=== PATIENT | female | born 1935 | race Caucasian/White ===

== ENCOUNTER 2016-12-15 02:23 | Emergency (ER) | payer MEDICARE ==
[2016-12-15] MEDS ORDERED: NS 1,000 ML IV ONE (02:40)
[2016-12-15 02:45] VITALS: BMI 26.8
[2016-12-15] MEDS ORDERED: ACETAMINOPHEN 325 MG/TAB TABLET PO ONE (02:51)
[2016-12-15 03:03] LABS: AUTOMATED BASOPHIL 0.3 % (0-2); AUTOMATED EOSINOPHIL 0.7 % (0-5); AUTOMATED LYMPH 12.5 % (17-44); AUTOMATED MONOCYTE 6.6 % (3-10); AUTOMATED NEUTROPHIL 79.9 % (45-76); MPV 9.8 fL (7.4-10.4)
[2016-12-15 03:12] LABS: BLOOD UREA NITROGEN 21 MG/DL (7-17); CALCIUM 8.8 MG/DL (8.4-10.2); CALCULATED OSMOLALITY 268 MOs/Kg (270-290); CHLORIDE 98 mEq/L (98-107); CPK TOTAL WITH POSSIBLE MB 72 IU/L (30-134); GLUCOSE 122 MG/DL (70-99); SODIUM LEVEL 137 mEq/L (137-146); TOTAL PROTEIN 7.9 G/DL (6.3-8.2)
[2016-12-15 03:13] LABS: PARTIAL THROMB. TIME 24.8 SEC (22-35); PT-INR 1.1
--- NOTE | 2016-12-15 03:25 | DIRPT ---
CLINICAL DATA: Shortness of breath. Chest pain. Generalized pain. Fever, chills, nausea, and vomiting. EXAM: CHEST 2 VIEW COMPARISON: 11/14/2016 FINDINGS: Normal heart size and pulmonary vascularity. Calcified aorta. Suggestion of focal infiltration in the left lung base laterally possibly representing pneumonia. No blunting of costophrenic angles. No pneumothorax. Mediastinal contours appear intact. Degenerative changes in the spine with mild anterior wedging of mid thoracic vertebrae similar prior study. IMPRESSION: Suggestion of developing infiltration in the left lung base possibly due to pneumonia peer Electronically Signed By: Winston Doan M.D. On: 12/15/2016 03:22
[2016-12-15 03:41] LABS: LEUKOCYTES/URINE NEG (NEGATIVE); NITRITE/URINE NEG (NEGATIVE); URINE OCCULT BLOOD 3+ (NEG/TRACE)
--- NOTE | 2016-12-15 03:55 | EDPRACDOC ---
- General Information Chief Complaint: Generalized Weakness Stated Complaint: FEVER/SHOB/CHEST/BACK PAIN Time Seen by Provider: 12/15/16 02:34 Information Source: Patient Mode Of Arrival: Car Home Medications: Home Medications Amitriptyline HCl [Elavil] 50 mg PO HS 01/17/13 Citalopram Hydrobromide [Citalopram HBr] 60 mg PO DAILY 01/17/13 Fluticasone Propionate [Flonase Nasal [place]] 1 spray LEONARDO DAILY #1 each 10/31/16 Aspirin (Enteric Coated) [Ecotrin] 81 mg PO DAILY 11/14/16 Atorvastatin Calcium [Lipitor] 20 mg PO QHS 11/14/16 Benzonatate [Tessalon Perle] 200 mg PO TID PRN #14 capsule 11/14/16 Hydrocodone/Chlorphen Polis [Tussionex] 5 ml PO BID PRN #60 udc 11/14/16 Levothyroxine Sodium 137 mcg PO QHS 11/14/16 Albuterol Sulfate MDI [Proventil HFA] 1 puff PO Q4-6H 12/15/16 Azithromycin 250 mg PO DAILY #4 tablet 12/15/16 Ca Carb & Gluc/Mag Ox & Gluc [Calcium Magnesium Caplet] 1 each PO DAILY Cefdinir 300 mg PO BID #14 capsule 12/15/16 Lorazepam 0.5 - 1 mg PO Q6-8H PRN 12/15/16 Omeprazole 40 mg PO DAILY 12/15/16 Travoprost [Travatan Z] 1 drop OP DAILY 12/15/16 Allergies/Adverse Reactions: Allergies Allergy/AdvReac Type Severity Reaction Status Date / Time Penicillins Allergy Unknown Unknown/See Verified 10/31/16 11:32 Comments alendronate sodium Allergy Unknown/See Verified 10/31/16 11:32 Comments prednisone Allergy Unknown/See Verified 10/31/16 11:32 Comments - History of Present Illness HPI: COUGH FEVER CHILLS STARTING 1-2 DAYS AGO. COUGH HAS BEEN NONPRODUCTIVE. NO NAUSEA VOMITING DIARRHEA APPETITE REMAINED NORMAL. AMBULATING WELL AT HOME. LIVES WITH HER GRANDDAUGHTER. PLACED ON ANTIBIOTICS APPROXIMATELY 1 MONTH AGO FOR BRONCHOPNEUMONIA. SHE DID GET BETTER FROM THIS. ED Past Medical History - History Reviewed Yes Nurses notes reviewed and agree except as marked - Patient Medical History Cardiac History: Reports: Hypertension Respiratory History: Reports: COPD GI/ History: Reports: Urinary Tract Infection, Gastroesophageal Reflux, Diverticulosis Musculoskeletal History: Reports: Osteoarthritis Psychological History: Reports: Depression, Anxiety Systemic History: Denies: Cancer Surgical History: Reports: Cholecystectomy - Family Medical History Reports: Cancer (LUNG CA FATHER, SISTER) - Social Medical History Smoking Status: Never smoker EDM Review of Systems - Review of Systems ROS Negative Except as Marked: Yes All systems reviewed and were negative except as marked - Physical Exam Constitutional: No apparent distress, Alert (Awake), Other (ELDERLY FEMALE VERY COMFORTABLE.) Oriented to: Time, Person, Place Last recorded Vital Signs: Last Vital Signs Temp 102.6 F H 12/15/16 02:41 Pulse 100 12/15/16 02:41 Resp 20 12/15/16 02:41 BP 188/74 H 12/15/16 02:41 Pulse Ox 97 12/15/16 02:41 Oxygen Pulse Oxygen Saturation 97 O2 Device Room Air Oxygen Flow Rate Fraction of Inspired Oxygen ( FIO2) - HEENT Head: Normal ( normocephalic) Eye Exam: Normal (PERRL, EOMI, Sclera white) Oropharynx: Normal (Pharynx:Moist without exudate,Gums-no swelling) Tympanic Membrane: Normal Neck: Normal (FROM, trachea at midline) - Respiratory/Cardiovascular Respiratory: Normal - CTA (BBS clear to auscultation without adventitious sounds ) Cardiovascular: Normal (RRR without murmur, gallop or rub) - GI Auscultation: Normal (NABS) Palpation: Normal (Soft,No rebound or guarding, non distended) Tenderness: Non tender Stout's Sign: Negative - Musculoskeletal Back: Normal (Non-Tender) Extremities: Normal (Normal tone, Pulses 2+ No cyanosis or edema, FROM) - Integumentary Skin: Normal, Warm, Dry Lymphatics: Normal (no adenopathy) - Neurologic Memory Impaired: Normal Motor Function: Normal (Normal tone, Pulses 2+ No cyanosis or edema, FROM) Cranial Nerve: Normal (CN II-X11 intact sensation, strength 5/5) Cerebellar: Normal Mood Description: Normal Thought: Coherent Perception: Normal ED SOB MDM - Results Result Diagrams: 12/15/16 02:45 12/15/16 02:45 Results: WBC 17.1 xk/uL (3.8-10.8) H 12/15/16 02:45 RBC 4.16 xM/uL (4.20-5.40) L 12/15/16 02:45 Hgb 11.1 g/dL (12.0-16.0) L 12/15/16 02:45 Hct 34.4 % (36-47) L 12/15/16 02:45 MCV 83 fL (81-99) 12/15/16 02:45 MCH 26.6 pg (27-32) L 12/15/16 02:45 MCHC 32.2 g/dl (33-36) L 12/15/16 02:45 RDW 13.3 % (11.5-14.5) 12/15/16 02:45 Plt Count 229 xk/uL (130-400) 12/15/16 02:45 MPV 9.8 fL (7.4-10.4) 12/15/16 02:45 Neut % (Auto) 79.9 % (45-76) H 12/15/16 02:45 Lymph % (Auto) 12.5 % (17-44) L 12/15/16 02:45 [place] % (Auto) 6.6 % (3-10) 12/15/16 02:45 Eos % (Auto) 0.7 % (0-5) 12/15/16 02:45 Baso % (Auto) 0.3 % (0-2) 12/15/16 02:45 Absolute Neuts (auto) 13.51 xk/uL (1.7-8.2) H 12/15/16 02:45 Absolute Lymphs (auto) 2.05 xk/uL (0.65-4.75) 12/15/16 02:45 PT 11.3 SEC (9.2-11.2) H 12/15/16 02:45 INR 1.1 12/15/16 02:45 APTT 24.8 SEC (22-35) 12/15/16 02:45 Sodium 137 mEq/L (137-146) 12/15/16 02:45 Potassium 4.0 mEq/L (3.5-5.1) 12/15/16 02:45 Chloride 98 mEq/L (98-107) 12/15/16 02:45 Carbon Dioxide 26 mMOL/L (22-33) 12/15/16 02:45 Anion Gap 17 mEq/L (8-16) H 12/15/16 02:45 BUN 21 MG/DL (7-17) H 12/15/16 02:45 Creatinine 1.40 MG/DL (0.52-1.04) H 12/15/16 02:45 Estimated GFR (MDRD) 36 mL/min (>=60) L 12/15/16 02:45 Glucose 122 MG/DL (70-99) H 12/15/16 02:45 Calculated Osmolality 268 MOs/Kg (270-290) L 12/15/16 02:45 Lactic Acid 1.5 mEq/L (0.7-2.1) 12/15/16 02:45 Calcium 8.8 MG/DL (8.4-10.2) 12/15/16 02:45 Total Bilirubin 0.8 MG/DL (0.2-1.3) 12/15/16 02:45 AST 29 IU/L (14-36) 12/15/16 02:45 ALT 23 IU/L (9-52) 12/15/16 02:45 Alkaline Phosphatase 81 IU/L (55-165) 12/15/16 02:45 Creatine Kinase 72 IU/L (30-134) 12/15/16 02:45 Troponin I < 0.01 ng/mL (<.04) 12/15/16 02:45 Total Protein 7.9 G/DL (6.3-8.2) 12/15/16 02:45 Albumin 4.2 G/DL (3.5-5.0) 12/15/16 02:45 Urine Color Yellow 12/15/16 03:30 Urine Clarity Clear 12/15/16 03:30 Urine pH 7.0 (5.0-8.0) 12/15/16 03:30 Ur Specific [place] 1.005 (1.003-1.035) 12/15/16 03:30 Urine Protein 1+ (NEG/TRACE) H 12/15/16 03:30 Urine Glucose (UA) Neg (NEGATIVE) 12/15/16 03:30 Urine Ketones Neg (NEGATIVE) 12/15/16 03:30 Urine Occult Blood 3+ (NEG/TRACE) H 12/15/16 03:30 Urine Nitrite Neg (NEGATIVE) 12/15/16 03:30 Urine Bilirubin Neg (NEGATIVE) 12/15/16 03:30 Urine Urobilinogen <2.0 MG/DL (0-1) 12/15/16 03:30 Ur Leukocyte Esterase Neg (NEGATIVE) 12/15/16 03:30 Urine RBC 10-20 (0-5) H 12/15/16 03:30 Ur Epithelial Cells Occ 12/15/16 03:30 Microbiology 12/15/16 02:49 Influenza Type A Antigen Screen - Final Nasal Washing/Aspirate Or Swab NEGATIVE Please note: A NEGATIVE result does not exclude an influenza virus infection. It is a presumptive result and, if required, confirmation should be done using either a virus culture or an FDA-cleared influenza A&B molecular assay. ("NORMAL" value = "NEGATIVE".) Influenza Type B Antigen Screen - Final NEGATIVE Please note: A NEGATIVE result does not exclude an influenza virus infection. It is a presumptive result and, if required, confirmation should be done using either a virus culture or an FDA-cleared influenza A&B molecular assay. ("NORMAL" value = "NEGATIVE".) Lab Results 12/15/16 12/15/16 12/15/16 03:30 02:45 02:45 WBC 17.1 H RBC 4.16 L Hgb 11.1 L Hct 34.4 L MCV 83 MCH 26.6 L MCHC 32.2 L RDW 13.3 Plt Count 229 MPV 9.8 Neut % (Auto) 79.9 H Lymph % (Auto) 12.5 L [place] % (Auto) 6.6 Eos % (Auto) 0.7 Baso % (Auto) 0.3 Absolute Neuts (auto) 13.51 H Absolute Lymphs (auto) 2.05 PT 11.3 H INR 1.1 APTT 24.8 Sodium Potassium Chloride Carbon Dioxide Anion Gap BUN Creatinine Estimated GFR (MDRD) Glucose Calculated Osmolality Lactic Acid Calcium Total Bilirubin AST ALT Alkaline Phosphatase Creatine Kinase Troponin I Total Protein Albumin Urine Color Yellow Urine Clarity Clear Urine pH 7.0 Ur Specific [place] 1.005 Urine Protein 1+ H Urine Glucose (UA) Neg Urine Ketones Neg Urine Occult Blood 3+ H Urine Nitrite Neg Urine Bilirubin Neg Urine Urobilinogen <2.0 Ur Leukocyte Esterase Neg Urine RBC 10-20 H Ur Epithelial Cells Occ 12/15/16 12/15/16 02:45 02:45 WBC RBC Hgb Hct MCV MCH MCHC RDW Plt Count MPV Neut % (Auto) Lymph % (Auto) [place] % (Auto) Eos % (Auto) Baso % (Auto) Absolute Neuts (auto) Absolute Lymphs (auto) PT INR APTT Sodium 137 Potassium 4.0 Chloride 98 Carbon Dioxide 26 Anion Gap 17 H BUN 21 H Creatinine 1.40 H Estimated GFR (MDRD) 36 L Glucose 122 H Calculated Osmolality 268 L Lactic Acid 1.5 Calcium 8.8 Total Bilirubin 0.8 AST 29 ALT 23 Alkaline Phosphatase 81 Creatine Kinase 72 Troponin I < 0.01 Total Protein 7.9 Albumin 4.2 Urine Color Urine Clarity Urine pH Ur Specific [place] Urine Protein Urine Glucose (UA) Urine Ketones Urine Occult Blood Urine Nitrite Urine Bilirubin Urine Urobilinogen Ur Leukocyte Esterase Urine RBC Ur Epithelial Cells - EKG EKG #1 EKG Time: 02:33 -: Yes EKG interpreted by me Rate: bpm: 102 [place]: Normal Rhythm: ST Block: None Hypertrophy: None ST: Normal - Diagnostic Imaging Chest Image interpreted by: Radiologist Diagnostic Imaging Comments: Patient Name: NAZARIO GUTIERREZ LOC: ED : 1935 AGE: 81 Order Date:12/15/16 Date of Service: Report # [id number] Ord Physician: Sofie Zepeda MD Exam # [id number] Emergency Physician: Sofie Zepeda MD Exam(s): [id number] RAD/DG CHEST 2V CLINICAL DATA: Shortness of breath. Chest pain. Generalized pain. Fever, chills, nausea, and vomiting. EXAM: CHEST 2 VIEW COMPARISON: 11/14/2016 FINDINGS: Normal heart size and pulmonary vascularity. Calcified aorta. Suggestion of focal infiltration in the left lung base laterally possibly representing pneumonia. No blunting of costophrenic angles. No pneumothorax. Mediastinal contours appear intact. Degenerative changes in the spine with mild anterior wedging of mid thoracic vertebrae similar prior study. IMPRESSION: Suggestion of developing infiltration in the left lung base possibly due to pneumonia peer Electronically Signed By: Winston Doan M.D. On: 12/15/2016 03:22 Electronically Signed By: Atiya Doan MD Electronically Signed Date/Time: [id number] Dictate Date/Time: 12/15/16320 Technologist: Janki Hylton Transcribed By: Wilson Transcribed Date/Time: 12/15/16321 - Additional Information Additional Information: VITAL SIGNS HAVE BEEN WITHIN NORMAL LIMITS, 90 ACID IS NORMAL PATIENT WELL- APPEARING NO NAUSEA VOMITING OR DIARRHEA ABLE TO TAKE P.O. WILL TRY A ROUND OF P.O. ANTIBIOTICS., BUT AT THIS TIME OUTPATIENT MANAGEMENT APPEARS REASONABLE. - Departure Disposition: Home Condition: Good Final Diagnosis: Community acquired bacterial pneumonia Instructions: Weakness (General), Bacterial Pneumonia (ED) Education/Counseling Given To: Patient Education/Counseling Given Regarding: Diagnosis, Treatment, Prognosis Referrals: Aris Manuel MD [Primary Care Provider] - One Week Prescriptions: New Azithromycin 250 mg PO DAILY #4 tablet Cefdinir 300 mg PO BID #14 capsule No Action Citalopram Hydrobromide [Citalopram HBr] 60 mg PO DAILY Amitriptyline HCl [Elavil] 50 mg PO HS Fluticasone Propionate [Flonase Nasal [place]] 1 spray LEONARDO DAILY #1 each Levothyroxine Sodium 137 mcg PO QHS Atorvastatin Calcium [Lipitor] 20 mg PO QHS Aspirin (Enteric Coated) [Ecotrin] 81 mg PO DAILY Benzonatate [Tessalon Perle] 200 mg PO TID PRN #14 capsule PRN Reason: Cough Hydrocodone/Chlorphen Polis [Tussionex] 5 ml PO BID PRN #60 udc PRN Reason: Cough Omeprazole 40 mg PO DAILY Lorazepam 0.5 - 1 mg PO Q6-8H PRN PRN Reason: Anxiety Ca Carb & Gluc/Mag Ox & Gluc [Calcium Magnesium Caplet] 1 each PO DAILY Albuterol Sulfate MDI [Proventil HFA] 1 puff PO Q4-6H Travoprost [Travatan Z] 1 drop OP DAILY
[2016-12-15] MEDS ORDERED: CEFTRIAXONE 1 GM in D5W 100 ML IV ONE (04:51)
[2016-12-15] MEDS ORDERED: LEVOFLOXACIN 750 MG TAB PO ONE (04:51)
[2016-12-15] MEDS ORDERED: AZITHROMYCIN 250 MG TAB PO ONE (04:52)
[2016-12-15] MEDS ORDERED: AZITHROMYCIN 250 MG TAB ONE (05:18)
[2016-12-15 06:48] VITALS: BP 134/78; PULSE 94; TEMP 99.6
== END 2016-12-15 06:30 | disposition home or self-care (01) ==
LOC: ED 02:23
DX: J15.9 Unspecified bacterial pneumonia (principal); I10 Essential (primary) hypertension; J44.9 Chronic obstructive pulmonary disease, unspecified; K21.9 Gastro-esophageal reflux disease without esophagitis; Z79.899 Other long term (current) drug therapy
CPT/HCPCS: 36415; 71020; 80053; 81001; 82550; 83605; 84484; 85025; 85610; 85730; 87040; 87086; 87804; 93005; 96361; 96365; 99284; A9270; J0696; J7060; J3490

== ENCOUNTER 2016-12-21 19:10 | Emergency (ER) | payer MEDICARE ==
[2016-12-21 19:13] VITALS: TEMP 99.3
[2016-12-21 19:32] VITALS: BMI 27.3
[2016-12-21 19:41] LABS: AUTOMATED BASOPHIL 0.8 % (0-2); AUTOMATED EOSINOPHIL 5.5 % (0-5); AUTOMATED MONOCYTE 8.3 % (3-10); AUTOMATED NEUTROPHIL 53.4 % (45-76); MPV 9.3 fL (7.4-10.4)
[2016-12-21 19:55] LABS: BLOOD UREA NITROGEN 15 MG/DL (7-17); CALCIUM 8.6 MG/DL (8.4-10.2); CALCULATED OSMOLALITY 268 MOs/Kg (270-290); CHLORIDE 102 mEq/L (98-107); GLUCOSE 116 mg/dL (70-99); SODIUM LEVEL 138 mEq/L (137-146); TOTAL PROTEIN 7.3 G/DL (6.3-8.2)
--- NOTE | 2016-12-21 20:15 | EDPRACDOC ---
- General Information Chief Complaint: Dyspnea/Resp distress Stated Complaint: SENT FROM DR RODRÍGUEZ - BLOOD CLOT? Time Seen by Provider: 12/21/16 19:46 Mode Of Arrival: Car Home Medications: Home Medications Amitriptyline HCl [Elavil] 50 mg PO HS 01/17/13 Citalopram Hydrobromide [Citalopram HBr] 60 mg PO DAILY 01/17/13 Aspirin (Enteric Coated) [Ecotrin] 81 mg PO DAILY 11/14/16 Atorvastatin Calcium [Lipitor] 20 mg PO QHS 11/14/16 Levothyroxine Sodium 137 mcg PO DAILY 11/14/16 Albuterol Sulfate MDI [Proventil HFA] 1 puff PO Q4-6H PRN 12/15/16 Ca Carb & Gluc/Mag Ox & Gluc [Calcium Magnesium Caplet] 1 tab PO DAILY 12/15/16 Cefdinir 300 mg PO BID #14 capsule 12/15/16 Lorazepam 0.5 - 1 mg PO Q6-8H PRN 12/15/16 Omeprazole 40 mg PO DAILY 12/15/16 Travoprost [Travatan Z] 1 drop OU QHS 12/15/16 Fluticasone Propionate [Flonase Nasal [place]] 1 spray LEONARDO DAILY PRN 12/21/16 Levofloxacin [Levaquin] 750 mg PO DAILY #20 tablet 12/21/16 Metoprolol Tartrate [Lopressor] 12.5 mg PO BID 12/21/16 Allergies/Adverse Reactions: Allergies Allergy/AdvReac Type Severity Reaction Status Date / Time Penicillins Allergy Unknown Unknown/See Verified 12/21/16 19:32 Comments alendronate sodium Allergy Unknown/See Verified 12/21/16 19:32 Comments prednisone Allergy Unknown/See Verified 12/21/16 19:32 Comments - History of Present Illness HPI: C/o inc exertional SOB, weakness, dizztness, orthopnea, nausea, since OCT 2016. Sent to cardiology by pcp Dr Manuel. Saw toy department manager Aga today and sent to ED for elevated d-dimer. Denies cp,fever, vomiting, cough, sore throat, change in urine or BM. Med hx COPD, otherwise pt unsure. Seen here in ED multiple times for same sx. Early pneumonia on 11/2716 CXR. Shortness of Breath: Mild Relevant History: Reports: COPD Cough: Reports: Non-productive Rhinorrhea: Reports: None Ear Symptoms: Reports: None SOB Worsens with: Reports: Exertion, Anxiety SOB Improves with: Reports: Sitting up ED Past Medical History - History Reviewed Yes Nurses notes reviewed and agree except as marked - Patient Medical History Cardiac History: Reports: Hypertension Respiratory History: Reports: COPD GI/ History: Reports: Urinary Tract Infection, Gastroesophageal Reflux, Diverticulosis Musculoskeletal History: Reports: Osteoarthritis Psychological History: Reports: Depression, Anxiety Systemic History: Denies: Cancer Surgical History: Reports: Cholecystectomy - Family Medical History Reports: Cancer (LUNG CA FATHER, SISTER) - Social Medical History Smoking Status: Never smoker EDM Review of Systems - Review of Systems ROS Negative Except as Marked: Yes All systems reviewed and were negative except as marked Respiratory: Cough, Shortness of Breath Neurological: Weakness - Physical Exam Constitutional: No apparent distress, Alert Oriented to: Time, Person, Place Last recorded Vital Signs: Last Vital Signs Temp 99.3 F 12/21/16 19:12 Pulse 73 12/21/16 19:12 Resp 18 12/21/16 19:12 BP 147/69 12/21/16 19:12 Pulse Ox 94 12/21/16 19:12 Oxygen Pulse Oxygen Saturation 94 O2 Device Room Air Oxygen Flow Rate Fraction of Inspired Oxygen ( FIO2) - HEENT Head: Normal Eye Exam: negative: Conjunctival Injection, Scleral Icterus Oropharynx: negative: Drooling TMJ: Normal Nose: No Symptoms Reported Neck: Normal - Respiratory/Cardiovascular Respiratory: Normal - CTA Cardiovascular: Normal - GI Tenderness: Non tender - Musculoskeletal Back: Normal Extremities: Normal - Integumentary Skin: Normal - Neurologic Mood Description: Normal Thought: Coherent Perception: Normal ED SOB MDM - Results Result Diagrams: 12/21/16 19:30 12/21/16 19:30 Results: WBC 11.0 xk/uL (3.8-10.8) H 12/21/16 19:30 RBC 3.76 xM/uL (4.20-5.40) L 12/21/16 19:30 Hgb 10.1 g/dL (12.0-16.0) L 12/21/16 19:30 Hct 30.6 % (36-47) L 12/21/16 19:30 MCV 81 fL (81-99) 12/21/16 19:30 MCH 27.0 pg (27-32) 12/21/16 19:30 MCHC 33.1 g/dl (33-36) 12/21/16 19:30 RDW 13.2 % (11.5-14.5) 12/21/16 19:30 Plt Count 304 xk/uL (130-400) 12/21/16 19:30 MPV 9.3 fL (7.4-10.4) 12/21/16 19:30 Neut % (Auto) 53.4 % (45-76) 12/21/16 19:30 Lymph % (Auto) 32.0 % (17-44) 12/21/16 19:30 [place] % (Auto) 8.3 % (3-10) 12/21/16 19:30 Eos % (Auto) 5.5 % (0-5) H 12/21/16 19:30 Baso % (Auto) 0.8 % (0-2) 12/21/16 19:30 Absolute Neuts (auto) 5.83 xk/uL (1.7-8.2) 12/21/16 19:30 Absolute Lymphs (auto) 3.52 xk/uL (0.65-4.75) 12/21/16 19:30 APTT 27.2 SEC (22-35) 12/21/16 19:30 Sodium 138 mEq/L (137-146) 12/21/16 19:30 Potassium 4.0 mEq/L (3.5-5.1) 12/21/16 19:30 Chloride 102 mEq/L (98-107) 12/21/16 19:30 Carbon Dioxide 23 mMOL/L (22-33) 12/21/16 19:30 Anion Gap 17 mEq/L (8-16) H 12/21/16 19:30 BUN 15 MG/DL (7-17) 12/21/16 19:30 Creatinine 1.20 MG/DL (0.52-1.04) H 12/21/16 19:30 Estimated GFR (MDRD) 43 mL/min (>=60) L 12/21/16 19:30 Glucose 116 mg/dL (70-99) H 12/21/16 19:30 Calculated Osmolality 268 MOs/Kg (270-290) L 12/21/16 19:30 Calcium 8.6 MG/DL (8.4-10.2) 12/21/16 19:30 Corrected Calcium 9.0 MG/DL (8.4-10.2) 12/21/16 19:30 Total Bilirubin 0.4 MG/DL (0.2-1.3) 12/21/16 19:30 AST 29 IU/L (14-36) 12/21/16 19:30 ALT 33 IU/L (9-52) 12/21/16 19:30 Alkaline Phosphatase 61 IU/L (55-165) 12/21/16 19:30 Total Protein 7.3 G/DL (6.3-8.2) 12/21/16 19:30 Albumin 3.6 G/DL (3.5-5.0) 12/21/16 19:30 Lab Results 12/21/16 12/21/16 12/21/16 19:30 19:30 19:30 WBC 11.0 H RBC 3.76 L Hgb 10.1 L Hct 30.6 L MCV 81 MCH 27.0 MCHC 33.1 RDW 13.2 Plt Count 304 MPV 9.3 Neut % (Auto) 53.4 Lymph % (Auto) 32.0 [place] % (Auto) 8.3 Eos % (Auto) 5.5 H Baso % (Auto) 0.8 Absolute Neuts (auto) 5.83 Absolute Lymphs (auto) 3.52 APTT 27.2 Sodium 138 Potassium 4.0 Chloride 102 Carbon Dioxide 23 Anion Gap 17 H BUN 15 Creatinine 1.20 H Estimated GFR (MDRD) 43 L Glucose 116 H Calculated Osmolality 268 L Calcium 8.6 Corrected Calcium 9.0 Total Bilirubin 0.4 AST 29 ALT 33 Alkaline Phosphatase 61 Total Protein 7.3 Albumin 3.6 - EKG EKG #1 EKG Time: 21:43 -: Yes EKG interpreted by me Rate: bpm: 72 Rhythm: NSR ST: Normal Comparison: 11/30/16 (ST) - Diagnostic Imaging Chest Image interpreted by: Radiologist Diagnostic Imaging Comments: EXAM: CT ANGIOGRAPHY CHEST WITH CONTRAST TECHNIQUE: Multidetector CT imaging of the chest was performed using the standard protocol during bolus administration of intravenous contrast. Multiplanar CT image reconstructions and MIPs were obtained to evaluate the vascular anatomy. CONTRAST: 90 cc of Isovue 370 COMPARISON: 10/31/2016 FINDINGS: Mediastinum: Normal heart size. There is aortic atherosclerosis noted. Calcification within the LAD, left circumflex and RCA coronary artery noted. The esophagus appears patent. Normal appearance of the trachea. The main pulmonary artery appears normal. No saddle embolus. No lobar or segmental pulmonary embolus identified. Lungs/Pleura: No pleural effusion identified. There is dense airspace consolidation within the posterior and medial left lower lobe compatible with pneumonia. Several additional patchy areas of consolidation are noted in the right middle lobe and right apex. Upper Abdomen: Cyst arises from the upper pole of the left kidney. The visualized portions of the liver, spleen and adrenal glands are normal. Musculoskeletal: Spondylosis noted within the thoracic spine. Within the upper thoracic spine there is a kyphosis deformity, image 66 of series 601. No aggressive lytic or sclerotic bone lesions identified. Review of the MIP images confirms the above findings. IMPRESSION: 1. No acute pulmonary embolus. 2. Left lower lobe airspace consolidation likely secondary to pneumonia. Followup PA and lateral chest X-ray is recommended in 3-4 weeks following trial of antibiotic therapy to ensure resolution and exclude underlying malignancy. 3. Aortic atherosclerosis and multi vessel coronary artery calcification. Electronically Signed By: Karlie Victor M.D. On: 12/21/2016 21:17 - Additional Information Additional Information: pt given zpak and cefdinir last week. will try levaquin. O2 sats now 99% Decision Time to Discharge: 21:46 - Departure Disposition: Home Condition: Stable Final Diagnosis: Pneumonia Qualifiers: Pneumonia type: due to unspecified organism Laterality: unspecified laterality Lung location: unspecified part of lung Qualified Code(s): J18.9 - Pneumonia, unspecified organism Instructions: Bacterial Pneumonia (ED) Education/Counseling Given To: Patient Education/Counseling Given Regarding: Diagnosis, Treatment, Prognosis, Follow Up Referrals: Aris Manuel MD [Primary Care Provider] - One Week Prescriptions: New Levofloxacin [Levaquin] 750 mg PO DAILY #20 tablet No Action Citalopram Hydrobromide [Citalopram HBr] 60 mg PO DAILY Amitriptyline HCl [Elavil] 50 mg PO HS Levothyroxine Sodium 137 mcg PO DAILY Atorvastatin Calcium [Lipitor] 20 mg PO QHS Aspirin (Enteric Coated) [Ecotrin] 81 mg PO DAILY Omeprazole 40 mg PO DAILY Lorazepam 0.5 - 1 mg PO Q6-8H PRN PRN Reason: Anxiety Ca Carb & Gluc/Mag Ox & Gluc [Calcium Magnesium Caplet] 1 tab PO DAILY Albuterol Sulfate MDI [Proventil HFA] 1 puff PO Q4-6H PRN PRN Reason: Shortness Of Breath Travoprost [Travatan Z] 1 drop OU QHS Cefdinir 300 mg PO BID #14 capsule Metoprolol Tartrate [Lopressor] 12.5 mg PO BID Fluticasone Propionate [Flonase Nasal [place]] 1 spray LEONARDO DAILY PRN PRN Reason: ALLERGIES Additional Instructions: Follow up [facility] primary care. Take levaquin daily for 10 days. Return to ED for any new or worsening symptoms.
[2016-12-21] MEDS ORDERED: Pharmacy Review for Metformin - IV Contrast Given SCH (21:00)
--- NOTE | 2016-12-21 21:20 | DIRPT ---
CLINICAL DATA: Shortness of breath. Evaluate for pulmonary embolus. EXAM: CT ANGIOGRAPHY CHEST WITH CONTRAST TECHNIQUE: Multidetector CT imaging of the chest was performed using the standard protocol during bolus administration of intravenous contrast. Multiplanar CT image reconstructions and MIPs were obtained to evaluate the vascular anatomy. CONTRAST: 90 cc of Isovue 370 COMPARISON: 10/31/2016 FINDINGS: Mediastinum: Normal heart size. There is aortic atherosclerosis noted. Calcification within the LAD, left circumflex and RCA coronary artery noted. The esophagus appears patent. Normal appearance of the trachea. The main pulmonary artery appears normal. No saddle embolus. No lobar or segmental pulmonary embolus identified. Lungs/Pleura: No pleural effusion identified. There is dense airspace consolidation within the posterior and medial left lower lobe compatible with pneumonia. Several additional patchy areas of consolidation are noted in the right middle lobe and right apex. Upper Abdomen: Cyst arises from the upper pole of the left kidney. The visualized portions of the liver, spleen and adrenal glands are normal. Musculoskeletal: Spondylosis noted within the thoracic spine. Within the upper thoracic spine there is a kyphosis deformity, image 66 of series 601. No aggressive lytic or sclerotic bone lesions identified. Review of the MIP images confirms the above findings. IMPRESSION: 1. No acute pulmonary embolus. 2. Left lower lobe airspace consolidation likely secondary to pneumonia. Followup PA and lateral chest X-ray is recommended in 3-4 weeks following trial of antibiotic therapy to ensure resolution and exclude underlying malignancy. 3. Aortic atherosclerosis and multi vessel coronary artery calcification. Electronically Signed By: Karlie Victor M.D. On: 12/21/2016 21:17
[2016-12-21] MEDS ORDERED: LEVOFLOXACIN 750 MG TAB PO ONE (21:44)
[2016-12-21 22:36] VITALS: BP 160/74; PULSE 70
== END 2016-12-21 22:20 | disposition home or self-care (01) ==
LOC: ED 19:10
DX: J18.9 Pneumonia, unspecified organism (principal)
CPT/HCPCS: 36415; 71275; 80053; 84484; 85025; 85379; 85730; 93005; 99283; A9270; A9698; J3490